=== PATIENT | female | born 1975 | race Caucasian/White ===

== ENCOUNTER 2019-11-14 17:16 | Emergency (ER) | payer OTHER ==
[2019-11-14] MEDS ORDERED: LORazepam 0.5 MG Tab PO ONE (17:59)
--- NOTE | 2019-11-14 18:07 | EDM.PDOC ---
ED HPI GENERAL MEDICAL PROBLEM - General Chief Complaint: Behavioral/Psych Stated Complaint: ANXIETY Time Seen by Provider: 11/14/19 17:44 Source of Information: Reports: Patient, RN Notes Reviewed History Limitations: Reports: No Limitations - History of Present Illness INITIAL COMMENTS - FREE TEXT/NARRATIVE: Patient is a 44-year-old female who presents to the ED for the evaluation of her anxiety. Patient notes she has a history of anxiety, has been on medications in the past, but is not taking anything at this time. She states however for the last few weeks, she is been feeling really anxious, few days ago she developed some chest tightness, so bad that she thought maybe she was having a heart attack. She states this is not so bothersome any longer, and she states that the pain kind of comes and goes when she is feeling more anxious. She states that over the last 10 days, she thinks she is lost about 7 pounds that she just has no appetite, she states she tries to force herself to eat but is just not eating much at all. She does have a history of thyroid issues and had labs done today, and these seem to be within normal limits. She is scheduled to see kayla eone next week Sunday for management of anxiety, but she did not think she could make it throughout the weekend. Patient states that she is having lots of stress at home, she has had a recent loss of her relationship, and work has been extra stressful. Other than this, she denies any fevers or chills, cough/shortness of breath, nausea/vomiting/diarrhea. Chest Pain Score (Numeric/FACES): 2 - Related Data Allergies Allergy/AdvReac Type Severity Reaction Status Date / Time No Known Allergies Allergy Verified 11/14/19 17:48 Home Meds: Home Meds LORazepam [Ativan] 1 mg PO TID PRN #12 tab 11/14/19 [Rx] Liothyronine [Cytomel] 5 mcg PO DAILY 11/14/19 [History] Past Medical History Psychiatric History: Reports: Anxiety Endocrine/Metabolic History: Reports: Hypothyroidism Social & Family History - Tobacco Use Smoking Status *Q: Never Smoker - Caffeine Use Caffeine Use: Reports: Coffee - Recreational Drug Use Recreational Drug Use: No ED ROS GENERAL - Review of Systems Review Of Systems: Comprehensive ROS is negative, except as noted in HPI. ED EXAM, GENERAL - Physical Exam Exam: See Below Exam Limited By: No Limitations General Appearance: Alert, WD/WN, No Apparent Distress, Anxious (pt is tearful on initial exam and does tear up when talking about her stressors at home.) Eye Exam: Bilateral Eye: EOMI Respiratory/Chest: No Respiratory Distress, Lungs Clear, Normal Breath Sounds, No Accessory Muscle Use, Chest Non-Tender Cardiovascular: Normal Peripheral Pulses, Regular Rate, Rhythm, No Murmur Peripheral Pulses: 2+: Radial (L), Radial (R) Extremities: Normal Inspection, Normal Capillary Refill Neurological: Alert, Oriented, Normal Cognition, No Motor/Sensory Deficits Psychiatric: Normal Affect, Normal Mood, Anxious (generalized anxiety) Skin Exam: Warm, Dry, Intact, Normal Color, No Rash Course - Vital Signs Last Recorded V/S: Last Vital Signs Temp 98.0 F 11/14/19 17:44 Pulse 94 11/14/19 17:44 Resp 18 11/14/19 17:44 BP 138/88 11/14/19 17:44 Pulse Ox 100 11/14/19 17:44 - Orders/Labs/Meds Meds: Medications Discontinued Medications Generic Name Dose Route Start Last Admin Trade Name Mitchell PRN Reason Stop Dose Admin Lorazepam 0.5 mg 11/14/19 17:59 11/14/19 18:36 Ativan PO 11/14/19 18:00 0.5 mg ONETIME ONE Administration - Re-Assessments/Exams Free Text/Narrative Re-Assessment/Exam: 11/14/19 18:04 Patient presents to the ED for evaluation of anxiety, we will give her 0.5 mg p.o. Ativan for initial management, and send her home with a prescription for Ativan over the weekend, so she can make it to her appointment with Dedra Holt on Sunday. I did look at her thyroid labs, and these are within normal limits at this time. There should be no adjustment for her thyroid medication. 11/14/19 18:55 The patient did report feeling better after the medication given. I did tell her she can take 1/2 tablet as needed, she does not need to take a full tablet, she is not also to take it during the day if she feels it makes her too sedated. She is aware of this and verbalized understanding. Departure - Departure Time of Disposition: 18:07 Disposition: Home, Self-Care 01 Condition: Good Clinical Impression: Panic attack due to exceptional stress - Discharge Information *PRESCRIPTION DRUG MONITORING PROGRAM REVIEWED*: Yes *COPY OF PRESCRIPTION DRUG MONITORING REPORT IN PATIENT LUDY: No Prescriptions: LORazepam [Ativan] 1 mg PO TID PRN #12 tab PRN Reason: Anxiety Instructions: Living With Anxiety Referrals: PCP,None [Primary Care Provider] - Forms: ED Department Discharge Additional Instructions: You were evaluated in the ER today for your anxiety. You were given a dose of Ativan, this seemed to help relieve your symptoms fairly well. You were given a prescription for Ativan, you may take 1/2-1 full tablet 3 times a day as needed for symptoms of anxiety. Please keep your follow-up appointment with Kait Holt on Sunday of next week for evaluation and further management. You would also benefit from a counselor, please try to call a counseling service in [place] to arrange an appointment with a counselor at this time. [facility] number is [phone], you can call their Sunday to try to arrange appointments with a counselor. Please return to the ER at any time if symptoms change or worsen. Sepsis Event Note (ED) - Evaluation Sepsis Screening Result: No Definite Risk - Focused Exam Vital Signs: Vital Signs Temp Pulse Resp BP Pulse Ox 11/14/19 17:44 98.0 F 94 18 138/88 100
== END 2019-11-14 19:13 | disposition home or self-care (01) ==
LOC: JD.ED 17:16
DX: F43.0 Acute stress reaction (principal); E03.9 Hypothyroidism, unspecified; Z79.899 Other long term (current) drug therapy
CPT/HCPCS: 99283; A9270